=== PATIENT | male | born 1955 | race Caucasian/White ===

== ENCOUNTER 2021-07-25 09:19 | Inpatient (IN) | payer BC, SELFPAY ==
[2021-07-25] VITALS (13 sets, daily range): BP systolic 136; BP diastolic 82–93; PULSE 89–102; RESP 16–24; TEMP 36.4–36.6; O2SAT 64–98
--- NOTE | ~2021-07-25 | CT_ITS ---
EXAMINATION: CT abdomen pelvis wo/w con, CT diagnostic chest w con DATE: 07/25/2021 14:14 INDICATION: Pathologic L1 fracture with abnormal renal masses. TECHNIQUE: 1. Computed tomography (CT) of the chest was performed with 100 mL Omnipaque-350 intravenous contrast . Automated exposure control and iterative reconstruction technique were employed. 2. CT of the abdomen and pelvis was performed without and with 100 mL Omnipaque-350 intravenous contr ast. The same contrast bolus was utilized for the imaging of the chest, abdomen and pelvis. Automated exposure control and iterative reconstruction technique were employed. The dose-length product for t he combined studies was 2788.77 mGy-cm. COMPARISON: Lumbar spine CT dated 07/25/2021 FINDINGS: Chest: Mild elevation of the left hemidiaphragm. 3.8 x 3.3 cm left lower lobe mass with lobular margins conc erning for primary bronchogenic carcinoma. Confluent left hilar and mediastinal lymphadenopathy with mass measuring up to 9.5 x 8.4 x 7.4 cm which encases the left-sided pulmonary arteries with narrowin g of the pulmonary arteries particularly at the left upper lobe. There is also extrinsic compression is severe narrowing of the left upper lobe bronchus. Bandlike atelectasis anterior segment of the lef t upper lobe extends peripherally from the hilar mass. No other suspicious pulmonary nodules or melanie s, pneumonia, pulmonary edema or pleural effusion. Heart size is normal. Atherosclerotic coronary art michael calcification. No pericardial effusion. Thoracic aorta is normal in caliber with no dissection. R ight internal jugular central venous port catheter with distal tip at the superior cavoatrial junctio n. Mild bilateral gynecomastia. Severe bilateral glenohumeral osteoarthritis. Mild thoracic spondylos is. Lucent T9 hemangioma with internal thickened vertical trabecula. No other suspicious lytic or shania stic bone lesions in the chest. Abdomen and pelvis: Hepatic and splenic calcific lesions consistent with old granulomatous disease. Indeterminate a coupl e subtle approximately 1.3 cm relatively hypodense lesions in the left and right hepatic lobes. Pancr eas is normal. The bilateral adrenal glands appear thickened with somewhat nodular contours. Bilatera l nonenhancing renal cysts several which on the left demonstrate slightly greater than simple fluid a ttenuation on precontrast imaging consistent with complex proteinaceous/hemorrhagic cyst. No suspicio us enhancing renal lesions identified. 2.9 cm macroscopic fat attenuation intraluminal lipoma at the ascending colon. Suture line at the tip the cecum consistent with prior appendectomy. No abnormal bow el wall thickening or obstruction. Bladder is normal. Prostatomegaly measuring 4.7 x 3.5 cm. Severe l ower lumbar spondylosis with chronic bilateral L5 pars interarticularis defects and grade 2 anterolis thesis L5 on S1. Again noted is a pathologic compression fracture at L1 with central lytic lesion tonio picious for metastatic disease. Left total hip arthroplasty. IMPRESSION: 1. 3.8 x 3.3 cm left upper lobe mass concerning for primary bronchogenic carcinoma with bulky left hi lar and mediastinal lymphadenopathy concerning for metastatic disease. Consider CT-guided biopsy of t he left upper lobe mass for further evaluation. 2. A couple indeterminate 1.3 cm hypodense hepatic lesions also suspicious for metastatic disease alt bert differential would include benign lesions including hemangioma or focal nodular hyperplasia. 3. Bilateral nonenhancing renal cysts including complex high attenuation proteinaceous/hemorrhagic cy st in the left kidney. 4. Mild nodular thickening of the bilateral adrenal glands which could represent either adrenal hyper plasia, adenomas or metastatic disease. 5. Lytic lesion in the L1 vertebral body with pathologic fracture consistent with metastatic disease. No other suspicious bone lesions identifi
--- NOTE | ~2021-07-25 | CT_ITS ---
EXAMINATION: CT lumbar spine wo con DATE: 07/25/2021 11:50 INDICATION: Midline lumbar pain. TECHNIQUE: Computed tomography (CT) of the lumbar spine was performed without intravenous contrast. A utomated exposure control and iterative reconstruction technique were employed. The dose-length produ ct was 1198.63 mGy-cm. COMPARISON: Lumbar spine CT 10/02/2008 FINDINGS: There is a 2.6 cm mass in left kidney measuring soft tissue attenuation. Partially visualiz ed is a second mass in the left kidney. There are chronic bilateral L5 pars defects. There is 14 mm a nterolisthesis of L5 on S1. There is severely decreased disc height at L5-S1 with degenerative 2/5 he ight loss of L5 vertebral body posteriorly. There is a lytic lesion in L1 vertebral body with patholo gic fracture with 3/5 loss of height centrally. The following disc levels are specifically discussed: L1-L2: The disc is bulging. There is mild bilateral facet joint osteoarthritis. There is mild bilater al neural foraminal stenosis. There is no central canal stenosis. L2-L3: The disc is bulging. There is moderate bilateral facet joint osteoarthritis. There is moderate bilateral neural foraminal stenosis. There is mild central canal stenosis. L3-L4: The disc is bulging. There is mild bilateral facet joint osteoarthritis. There is moderate ray ateral neural foraminal stenosis. There is mild central canal stenosis. L4-L5: The disc is bulging. There is mild bilateral facet joint osteoarthritis. There is moderate ray ateral neural foraminal stenosis. There is mild central canal stenosis. L5-S1: The disc is bulging. There is mild bilateral facet joint osteoarthritis. There is moderate rig ht and severe left neural foraminal stenosis. There is no central canal stenosis. IMPRESSION: 1. Lytic lesion in L1 vertebral body with pathologic fracture, consistent with metastatic disease. 2. Left kidney masses, which may be benign or malignant. Abdomen CT without and with contrast is benson mmended. 3. Chronic bilateral L5 pars defects with grade 2 anterolisthesis of L5 on S1. 4. Severe lower lumbar spondylosis. Reviewed, dictated and finalized at location A. IMPRESSION: 1. Lytic lesion in L1 vertebral body with pathologic fracture, consistent with metastatic disease. 2. Left kidney masses, which may be benign or malignant. Abdomen CT without and with contrast is recommended. 3. Chronic bilateral L5 pars defects with grade 2 anterolisthesis of L5 on S1. 4. Severe lower lumbar spondylosis.
--- NOTE | 2021-07-25 11:38 | ED.BACK ---
HPI - Back Pain/Injury General Chief Complaint: Back Pain/Injury <Kathy Solano PA-C - Last Filed: 07/25/21 18:35> Stated Complaint: back pain <TIO Sandoval Last Filed: 07/25/21 18:35> Time Seen by Provider: 07/25/21 11:14 <TIO Sandoval Last Filed: 07/25/21 18:35> Source: patient <TIO Sandoval Last Filed: 07/25/21 18:35> Mode of arrival: ambulatory <TIO Sandoval Last Filed: 07/25/21 18:35> Limitations: no limitations <TIO Sandoval Last Filed: 07/25/21 18:35> History of Present Illness HPI Narrative: Patient is a 65-year-old male who presents the ED with report of bilateral lower back pain. Patient reports having pain for the past 1 week. He states he has been laying in bed for the most part since the pain began. Pain is worse with any type of movement or walking. Does not radiate down his legs. He has tried taking Tylenol and using a heating pad at home with minimal relief. Denies any bowel or bladder incontinence, weakness in legs, urinary retention, saddle anesthesia. Denies fever, chills, CP, SOB, ABD pain, N/V. No history of trauma, fall, or recent injury. No recent heavy lifting. Patient has a Hx of AFIB and CAD s/p stenting. He is on Xarelto. Patient also mentions a Hx of anal cancer 5 yrs ago. <TIO Sandoval Last Filed: 07/25/21 18:35> Related Data Home Medications: Home Medications Medication Instructions Recorded Confirmed amlodipine 10 mg PO HS 07/25/21 07/25/21 cholestyramine (with sugar) 1 ea PO DAILY PRN 07/25/21 07/25/21 rivaroxaban [Xarelto] 20 mg PO DAILY 07/25/21 07/25/21 rosuvastatin 40 mg PO DAILY 07/25/21 07/25/21 sotalol [Sotalol AF] 80 mg PO BID 07/25/21 07/25/21 testosterone See Rx Instructions .ROUTE .COMPLEX 07/25/21 07/25/21 <Kathy Solano PA-C - Last Filed: 07/25/21 18:35> Allergies/Adverse Reactions: Allergies Allergy/AdvReac Type Severity Reaction Status Date / Time metoprolol AdvReac Cough Verified 07/25/21 18:03 <Kathy Solano PA-C - Last Filed: 07/25/21 18:35> Review of Systems Review of Systems: CONSTITUTIONAL: Denies fever, chills, or sweats. CARDIOVASCULAR: Denies chest pain. RESPIRATORY: Denies dyspnea. GASTROINTESTINAL: Denies abdominal pain, nausea, vomiting, incontinence, or diarrhea. GENITOURINARY: Denies incontinence, frequency, dysuria or hematuria. SKIN: Denies rash or itching. MUSCULOSKELETAL: Reports bilateral lower back pain. Denies joint pain or myalgia. NEUROLOGIC: Denies headache, numbness/tingling, BLE weakness. <Kathy Solano PA-C - Last Filed: 07/25/21 18:35> All systems reviewed & are unremarkable except as noted in HPI and below <Kathy Solano PA-C - Last Filed: 07/25/21 18:35> [facility] Past Medical History Medical History: Medical History Atrial fibrillation CAD in [place] artery Dyslipidemia Essential (primary) hypertension History of anal cancer Hypothyroidism (acquired) JENNIE (obstructive sleep apnea) Osteoarthritis <Kathy Solano PA-C - Last Filed: 07/25/21 18:35> Surgical History Surgical History: Surgical History History of rectal surgery <Kathy Solano PA-C - Last Filed: 07/25/21 18:35> Family History Family History: Family History (Updated 07/25/21 @ 17:51 by Elsa Noble RN) Mother Family history of cardiovascular disease Hypertension Father Family history of lung cancer <Kathy Solano PA-C - Last Filed: 07/25/21 18:35> Social History Social History: Social History Smoking packs per day: 2 Smoking cigarettes per day: 40.0 Years smoked: 20 Smoking pack-years: 40.00 Smoking status: Current every day smoker Tobacco type: cigarettes Second hand tobacco smoke exposure: No Alcohol intake: current Drinks per w
[2021-07-25] MEDS: ONDANSETRON INJ 4 MG/2 ML VIAL IV PUSH (12:15)
[2021-07-25] MEDS: MORPHINE SULFATE (*CRX) 2 MG/ML INJ IV PUSH (12:15)
[2021-07-25 13:00] LABS: Basophils Absolute Auto 0.1 K/mm3 (0.0-0.1); Basophils Percent Auto 0.4 % (0.2-1.2); Eosinophils Absolute Auto 0.1 K/mm3 (0-0.3); Eosinophils Percent Auto 0.4 % (0-4.4); Hematocrit 47.4 % (42.0-52.0); Hemoglobin 15.7 g/dL (14.0-18.0); Immature Granulocyte Absolute 0.11 K/mm3 (0.00-0.031); Immature Granulocyte Percent A 0.8 % (0-0.5); Lymphocytes Absolute Auto 1.63 K/mm3 (0.9-3.2); Lymphocytes Percent Auto 12.1 % (18.3-44.2); Mean Corpuscular HGB Conc 33.1 g/dl (32-36); Mean Corpuscular Hemoglobin 31.9 pg (26-34); Mean Corpuscular Volume 96.3 fl (80-100); Mean Platelet Volume 9.2 fl (7.4-10.4); Monocytes Absolute Auto 1.5 K/mm3 (0.1-0.6); Monocytes Percent Auto 11.1 % (2.6-8.5); Neutrophils Absolute Auto 10.1 K/mm3 (1.3-6.7); Neutrophils Percent Auto 75.2 % (45.5-73.1); Platelet Count Result 364 k/mm3 (150-375); Red Blood Count 4.92 M/mm3 (4.6-6.20); Red Cell Distribution Width 13.5 % (11.5-14.5); White Blood Count 13.4 K/mm3 (4.5-10.0)
[2021-07-25 13:11] LABS: Alanine Aminotransferase 15 U/L (4-50); Albumin Level 3.9 g/dL (3.5-5.1); Alkaline Phosphatase 72 U/L (38-126); Anion Gap 4 mmol/L (8-16); Aspartate Amino Transferase 33 U/L (17-59); Bilirubin,Total 0.6 mg/dL (0.2-1.3); Blood Urea Nitrogen 9 mg/dL (9-20); Calcium 9.6 mg/dL (8.4-10.2); Carbon Dioxide 31 mmol/L (22-30); Chloride 97 mmol/L (98-107); Estimated Glomerular Filt Rate > 60; Glucose 95 mg/dL (65-110); Potassium 3.6 mmol/L (3.4-5.0); Sodium 132 mmol/L (137-145)
[2021-07-25 13:20] LABS: INR 1.2; Prothrombin Time 15.1 Seconds (11.1-14.7)
[2021-07-25 13:21] LABS: Partial Thromboplastin Time 41.5 SECONDS (22.3-36.8)
--- NOTE | 2021-07-25 13:37 | PC.NURSE ---
Spoke with transfer center, all questions answered, pt on wait list, rapid covid test needed.
[2021-07-25 15:24] LABS: SARS-CoV-2 RNA PCR Negative
[2021-07-25] MEDS: MORPHINE SULFATE (*CRX) 4 MG/ML INJ IV PUSH ×3 (17:07→22:43)
--- NOTE | 2021-07-25 17:26 | ADMGEN ---
This patient, Rigo Garcia, was admitted to Medical Room 244-. Patient/family oriented to hospital policies and general routines including ID bracelet, bed and alarms, visiting hours, pain management, procedures, bathroom and other care routines, personal items, smoking policy, room service/diet, and visiting hours. Information on how to activate the Rapid Response Team has been discussed. Patient/Family are encouraged to report perceived risks to care and to ask questions if they do not understand what they are told or what they should do.
--- NOTE | 2021-07-25 23:43 | PM.IMHP ---
H&P: HPI History of Present Illness Date/Time: 07/25/21 22:05 Chief Complaint: Back pain Narrative: 65-year-old male with past medical history of essential hypertension, paroxysmal atrial fibrillation, rectal cancer, hyperlipidemia, coronary artery disease, and continuous tobacco abuse who presented to the ER via private vehicle due to low back pain. Patient reported that he started having subtle low back pain about a month ago but worsened about 1 week ago. The pain feels as if there is a not in his upper lumbar region. He reports that the not so are paraspinal in nature and are relieved with certain position changes. He reports the pain is a 10/10 in intensity his worsen currently is a 6/10 in intensity. The pain is worse when he steps down off of a curb or off of steps anything that causes a directional Force. He denies any loss of bowel or bladder control. He has not had any fevers or chills. He has had mild increased cough with increased phlegm production over the last couple of months. He denies any hemoptysis or hematemesis. He denies any increased shortness of breath from baseline. He reports that he had COVID back in March just before . He received the [employer] COVID vaccine in June of 2019 and did not receive a booster. He reports that since he had COVID he has occasional sour taste in the back of his throat and if he does not get that is our T cleared he will have moment of 15-20 seconds where he cannot breathe. These episodes usually occur after he has had an episode of coughing. He denies having any increased wheezing from baseline. He denies orthopnea or paroxysmal nocturnal dyspnea. His weight has been stable. He does have obstructive sleep apnea but is noncompliant with his CPAP. Patient reports that he has not tried any pain medications 1st pain. He states that he has chronic shoulder pain and Tylenol just does not help him. He states that Vicodin also has never helped with his pain. Cannot have anti-inflammatories due to being on chronic anticoagulation with Xarelto. Review of Systems Review of Systems: 12 systems were reviewed with pertinent positives and negatives per HPI. Except as documented in the HPI, all other systems were reviewed and are negative. [facility] Past Medical History Medical History (Updated 07/26/21 @ 02:07 by Angela Cotton DO) CAD in [place] artery COPD (chronic obstructive pulmonary disease) Dyslipidemia Essential (primary) hypertension History of anal cancer Low testosterone in male JENNIE (obstructive sleep apnea) Noncompliant with CPAP Osteoarthritis Paroxysmal atrial fibrillation Rectal cancer (~2013) Treated with bowel resection, chemotherapy and radiation therapy. Initially treated at [facility] but was following with [facility] still couple of years ago. Surgical History Surgical History (Updated 07/26/21 @ 02:07 by Angela Cotton DO) History of appendectomy History of coronary artery stent placement (~2007) Two stents. Follows with [facility] History of left hip replacement (~2016) History of rectal surgery (~2013) History of tonsillectomy History of total right knee replacement (~2009) Hx of cholecystectomy (~2004) Due to gangrenous gallbladder Family History Family History (Updated 07/26/21 @ 02:08 by Angela Cotton DO) Mother , Age 72 Hypertension Heart failure Father , Age 58 Lung cancer Social History Social History (Updated 07/26/21 @ 02:11 by Angela Cotton DO) Social History: The patient lives in [place] with his of 42 years. His is currently in [place] helping take care of their 13-year-old granddaughter who is being treated for thyroid cancer. He has 2 step children no biologic children. He has smoked 2 packs of cigarettes per day since he was 30 years old. His he drinks 3-4 beers a day. 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
[2021-07-26 02:09] VITALS: BMI 34.5
[2021-07-26] MEDS: MORPHINE SULFATE (*CRX) 4 MG/ML INJ IV PUSH ×7 (02:12→22:37)
[2021-07-26 04:30] VITALS: BP 140/71; PULSE 91; RESP 20; TEMP 36.9; O2SAT 91
[2021-07-26 07:54] VITALS: PULSE 80
[2021-07-26] MEDS: SOTALOL HCL 80 MG TABLET PO ×2 (07:54→20:46)
[2021-07-26] MEDS: ROSUVASTATIN 10 MG TABLET 40 MG PO (07:54)
--- NOTE | 2021-07-26 09:49 | PM.IMPN ---
Progress Note: A&P Assessment and Plan (1) Mass of upper lobe of left lung: Code(s): R91.8 - Other nonspecific abnormal finding of lung field Status: Acute Assessment and Plan: - Concern for probable bronchogenic carcinoma with potential of a metastasis to the liver and also irregularities noted in the adrenal glands kidneys. - History of anal cancer that is followed by oncologist at [facility]. Has not been evaluated There for a few years - awaiting transfer to [place]. - treat pain as needed. - Xarelto currently substituted with SCDs for DVT prophylaxis as patient will be likely having biopsy soon. (2) Pathologic lumbar vertebral fracture: Qualifiers: Encounter type: initial encounter Qualified Code(s): M84.48XA - Pathological fracture, other site, initial encounter for fracture Code(s): M84.48XA - Pathological fracture, other site, initial encounter for fracture Status: Acute Assessment and Plan: - Continue [place] and morphine for pain. - As treating with narcotic pain medication, will order MiraLax daily. - Awaiting transfer to [facility] (3) Chronic anticoagulation: Code(s): Z79.01 - [facility] (current) use of anticoagulants Status: Acute Assessment and Plan: - on Xarelto for atrial fibrillation. - Currently holding Xarelto due to the likelihood the patient will need and upcoming biopsy. (4) Constipation: Qualifiers: Constipation type: unspecified constipation type Qualified Code(s): K59.00 - Constipation, unspecified Code(s): K59.00 - Constipation, unspecified Status: Acute Assessment and Plan: - patient endorses no bowel movement for the past 5-6 days in addition we are treating patient with narcotic pain medications, so he will be started on MiraLax p.o. daily. (5) Tobacco abuse: Code(s): Z72.0 - Tobacco use Status: Chronic Assessment and Plan: - Patient endorses smoking 2 packs of cigarettes daily since he was 30 years old. He is currently 65 years old Making him a 70 year pack smoker. - he was educated on the importance of smoking cessation. - Nicotine patch is ordered. Additional Plan Time Spent With Patient Time with patient: 15 - 25 minutes Subjective Date/time seen: 07/26/21 0850 65-year-old male patient is examined at the bedside and intervals assessment this morning after being admitted to the hospital for complaints of having severe, intractable back pain that has been present for approximately 1 month it has worsened over the past week without any acute injury. He endorses that any jarring motion stepping down or any gravity directed force applied to his legs or on his back makes the pain worse. This patient is a chronic 2 pack-a-day cigarette smoker and has been for many years. He a total 70 pack-year smoker. patient has a history of having rectal cancer that he followed with a physician at [facility] and was considered cured. He has not followed up with his physician or any oncological services in several years. Patient also has a history of chronic atrial fibrillation which he is on Xarelto for anticoagulation. In the emergency room and was found by x-ray of the lumbar spine that he is a lytic lesion The L1 that has caused pathologic fracture and is consistent with metastasis to the bone. In addition CT of the abdomen, chest and pelvis show that he has left renal masses as well as concern for a bronchogenic carcinoma with bulky hilar and mediastinal lymphadenopathy concerning for metastasis in the lung. Hepatic lesions are also present and he has nodular thickening of the adrenal glands. he was admitted to the hospital for pain control overnight and we have requested transfer to [facility] for further oncological evaluation, workup and definitive care. Xarelto is currently being held for potential biopsy within the next couple of days. This
[2021-07-26] MEDS: polyethylene glycoL 3350 17 GM POWD.PACK PO (12:56)
--- NOTE | 2021-07-26 13:22 | PC.NURSE ---
On 07/26/21 UE student Russ Crawley provided care and performed an assessment in [facility]. I agree with the assessment and documentation.
[2021-07-26 17:00] VITALS: BP 157/80; PULSE 87; RESP 18; TEMP 36.1; O2SAT 94
[2021-07-26 20:42] VITALS: BP 149/79; PULSE 93; RESP 20; TEMP 37.1; O2SAT 90
[2021-07-26 20:46] VITALS: PULSE 94
[2021-07-26] MEDS: amLODIPine BESYLATE 5 MG TABLET 10 MG PO (20:47)
[2021-07-26] MEDS: HYDROcodone/acetaminophen (*CRX) 10-325 MG TABLET 1 TAB PO (20:49)
[2021-07-27] MEDS: MORPHINE SULFATE (*CRX) 4 MG/ML INJ IV PUSH ×6 (04:01→22:24)
[2021-07-27 04:17] VITALS: BP 123/63; PULSE 79; RESP 20; TEMP 36.8; O2SAT 94
[2021-07-27 05:45] LABS: Basophils Absolute Auto 0.1 K/mm3 (0.0-0.1); Basophils Percent Auto 0.5 % (0.2-1.2); Eosinophils Absolute Auto 0.1 K/mm3 (0-0.3); Eosinophils Percent Auto 0.8 % (0-4.4); Hematocrit 44.6 % (42.0-52.0); Hemoglobin 14.8 g/dL (14.0-18.0); Immature Granulocyte Percent A 0.8 % (0-0.5); Lymphocytes Absolute Auto 1.46 K/mm3 (0.9-3.2); Lymphocytes Percent Auto 11.2 % (18.3-44.2); Mean Corpuscular HGB Conc 33.2 g/dl (32-36); Mean Corpuscular Hemoglobin 31.4 pg (26-34); Mean Corpuscular Volume 94.5 fl (80-100); Mean Platelet Volume 9.7 fl (7.4-10.4); Monocytes Absolute Auto 1.5 K/mm3 (0.1-0.6); Monocytes Percent Auto 11.1 % (2.6-8.5); Neutrophils Absolute Auto 9.9 K/mm3 (1.3-6.7); Neutrophils Percent Auto 75.6 % (45.5-73.1); Platelet Count Result 387 k/mm3 (150-375); Red Blood Count 4.72 M/mm3 (4.6-6.20); Red Cell Distribution Width 13.2 % (11.5-14.5)
[2021-07-27 06:00] LABS: Alanine Aminotransferase 14 U/L (4-50); Albumin Level 3.6 g/dL (3.5-5.1); Alkaline Phosphatase 62 U/L (38-126); Anion Gap 8 mmol/L (8-16); Aspartate Amino Transferase 21 U/L (17-59); Bilirubin,Total 0.6 mg/dL (0.2-1.3); Blood Urea Nitrogen 7 mg/dL (9-20); Calcium 9.5 mg/dL (8.4-10.2); Carbon Dioxide 28 mmol/L (22-30); Chloride 95 mmol/L (98-107); Estimated CRCL calculation 129 ml/min; Estimated Glomerular Filt Rate > 60; Glucose 119 mg/dL (65-110); Magnesium 1.8 mg/dL (1.6-2.3); Potassium 3.3 mmol/L (3.4-5.0); Sodium 131 mmol/L (137-145)
[2021-07-27] MEDS: POTASSIUM CHLORIDE 20 MEQ TABLET 40 MEQ PO (08:10)
[2021-07-27] MEDS: POTASSIUM CHLORIDE 20 MEQ TABLET PO (08:11)
[2021-07-27] MEDS: polyethylene glycoL 3350 17 GM POWD.PACK PO (08:11)
[2021-07-27 08:12] VITALS: PULSE 70
[2021-07-27] MEDS: SOTALOL HCL 80 MG TABLET PO ×2 (08:12→20:08)
[2021-07-27] MEDS: ROSUVASTATIN 10 MG TABLET 40 MG PO (08:12)
[2021-07-27] MEDS: HYDROcodone/acetaminophen (*CRX) 10-325 MG TABLET 1 TAB PO ×2 (10:22→18:17)
[2021-07-27 11:00] VITALS: BP 118/63; PULSE 84; RESP 20; TEMP 36.2; O2SAT 93
--- NOTE | 2021-07-27 11:03 | PCCCNOTE ---
On 07/27/21, the student, [Bita aCrd], provided care and completed [facility] documentation on this patient. I have reviewed the student's documentation and agree with the findings.
--- NOTE | 2021-07-27 11:07 | PM.IMPN ---
Progress Note: A&P Assessment and Plan (1) Mass of upper lobe of left lung: Code(s): R91.8 - Other nonspecific abnormal finding of lung field Status: Acute Assessment and Plan: - Concern for probable bronchogenic carcinoma with potential of a metastasis to the liver and also irregularities noted in the adrenal glands kidneys. - History of anal cancer that is followed by oncologist at [facility]. Has not been evaluated there for a few years - awaiting transfer to [place]. - treat pain as needed. - Xarelto currently substituted with SCDs for DVT prophylaxis as patient will be likely having biopsy soon. (2) Pathologic lumbar vertebral fracture: Qualifiers: Encounter type: initial encounter Qualified Code(s): M84.48XA - Pathological fracture, other site, initial encounter for fracture Code(s): M84.48XA - Pathological fracture, other site, initial encounter for fracture Status: Acute Assessment and Plan: - Continue [place] and morphine for pain. - As treating with narcotic pain medication, will order MiraLax daily. - Awaiting transfer to [facility] (3) Chronic anticoagulation: Code(s): Z79.01 - half-way (current) use of anticoagulants Status: Acute Assessment and Plan: - on Xarelto for atrial fibrillation. - Currently holding Xarelto due to the likelihood the patient will need and upcoming biopsy. (4) Constipation: Qualifiers: Constipation type: unspecified constipation type Qualified Code(s): K59.00 - Constipation, unspecified Code(s): K59.00 - Constipation, unspecified Status: Acute Assessment and Plan: - patient endorses no bowel movement for the past 5-6 days in addition we are treating patient with narcotic pain medications, so he will be started on MiraLax p.o. daily. (5) Tobacco abuse: Code(s): Z72.0 - Tobacco use Status: Chronic Assessment and Plan: - Patient endorses smoking 2 packs of cigarettes daily since he was 30 years old. He is currently 65 years old Making him a 70 year pack smoker. - he was educated on the importance of smoking cessation. - Nicotine patch is ordered. Additional Plan Time Spent With Patient Time with patient: 15 - 25 minutes Subjective Date/time seen: 07/27/21 1000 This pleasant 65 year old male patient is examined at the bedside at this time as he is admitted to observation here for pain control while he is pending transfer to [facility] for workup of his apparent metastasis. He has pathologic fracture of L1 as well as Left upper lung mass, and potential associated spots on his liver and adrenal glands. His pain has been severe in his back. Today he reports that his pain is better improved and that he has no new complaints or symptoms to report. He reports that his pain is better managed today. He asked me to call his sister, Lizette Kerr at [phone], and he gives permission for us to speak with her regarding his current status. She was updated. We are still awaiting a bed at [facility] and will transfer as soon as one is available. Review of Systems Review of Systems: All systems reviewed & are unremarkable except as noted in HPI and below Exam Narrative: PHYSICAL EXAM: General: Obese, elderly appearing male lying supine in bed at this time in no acute distress. He appears to be comfortable. HEENT: MMM, PERRLA Respiratory: Decreased breath sounds present in all lobes. There is a prolonged expiratory phase. Cardiovascular: Regular rate, regular rhythm, 2+ bilateral radial pedal pulses Gastrointestinal: Distended, nontender, positive bowel sounds Skin: No jaundice, no pallor Musculoskeletal: Back is tender to palpation. Neurological: A&Ox3, non-focal, no saddle anesthesia Psychiatric: Appropriate mood and affect, judgment insight intact : Continent of bowel and bladder Objective Data Vital Signs Vital Signs:
[2021-07-27 20:08] VITALS: PULSE 78
[2021-07-27] MEDS: amLODIPine BESYLATE 5 MG TABLET 10 MG PO (20:09)
[2021-07-27 20:13] VITALS: BP 125/72; PULSE 78; RESP 18; TEMP 36.8; O2SAT 93
[2021-07-28] MEDS: HYDROcodone/acetaminophen (*CRX) 10-325 MG TABLET 1 TAB PO ×3 (02:20→17:56)
[2021-07-28] MEDS: MORPHINE SULFATE (*CRX) 4 MG/ML INJ IV PUSH ×6 (04:23→23:51)
[2021-07-28 04:31] VITALS: BP 115/69; PULSE 77; RESP 16; TEMP 36.4; O2SAT 91
[2021-07-28 05:59] LABS: Basophils Absolute Auto 0.1 K/mm3 (0.0-0.1); Basophils Percent Auto 0.5 % (0.2-1.2); Eosinophils Absolute Auto 0.2 K/mm3 (0-0.3); Eosinophils Percent Auto 1.3 % (0-4.4); Hematocrit 47.3 % (42.0-52.0); Hemoglobin 15.3 g/dL (14.0-18.0); Immature Granulocyte Percent A 0.8 % (0-0.5); Lymphocytes Absolute Auto 1.65 K/mm3 (0.9-3.2); Lymphocytes Percent Auto 13.8 % (18.3-44.2); Mean Corpuscular HGB Conc 32.3 g/dl (32-36); Mean Corpuscular Hemoglobin 31.4 pg (26-34); Mean Corpuscular Volume 97.1 fl (80-100); Mean Platelet Volume 9.4 fl (7.4-10.4); Monocytes Absolute Auto 1.3 K/mm3 (0.1-0.6); Monocytes Percent Auto 10.6 % (2.6-8.5); Neutrophils Absolute Auto 8.7 K/mm3 (1.3-6.7); Platelet Count Result 406 k/mm3 (150-375); Red Blood Count 4.87 M/mm3 (4.6-6.20); Red Cell Distribution Width 13.3 % (11.5-14.5); White Blood Count 11.9 K/mm3 (4.5-10.0)
[2021-07-28 06:19] LABS: Alanine Aminotransferase 15 U/L (4-50); Albumin Level 3.9 g/dL (3.5-5.1); Alkaline Phosphatase 66 U/L (38-126); Anion Gap 6 mmol/L (8-16); Aspartate Amino Transferase 23 U/L (17-59); Bilirubin,Total 0.7 mg/dL (0.2-1.3); Blood Urea Nitrogen 8 mg/dL (9-20); Calcium 9.6 mg/dL (8.4-10.2); Carbon Dioxide 30 mmol/L (22-30); Chloride 96 mmol/L (98-107); Estimated CRCL calculation 129 ml/min; Estimated Glomerular Filt Rate > 60; Glucose 101 mg/dL (65-110); Magnesium 1.9 mg/dL (1.6-2.3); Potassium 3.6 mmol/L (3.4-5.0); Sodium 132 mmol/L (137-145)
[2021-07-28] MEDS: polyethylene glycoL 3350 17 GM POWD.PACK PO (07:56)
[2021-07-28] MEDS: ROSUVASTATIN 10 MG TABLET 40 MG PO (07:56)
[2021-07-28] MEDS: SOTALOL HCL 80 MG TABLET PO ×2 (07:56→21:04)
--- NOTE | 2021-07-28 10:28 | PM.IMPN ---
Progress Note: A&P Assessment and Plan (1) Mass of upper lobe of left lung: Code(s): R91.8 - Other nonspecific abnormal finding of lung field Status: Acute Assessment and Plan: - Concern for probable bronchogenic carcinoma with potential of a metastasis to the liver and also irregularities noted in the adrenal glands kidneys. - History of anal cancer that is followed by oncologist at [facility]. Has not been evaluated there for a few years - awaiting transfer to [place]. - treat pain as needed. - Xarelto being held as the pt. will likely be having a biopsy soon. SCD's are being used for Prophylaxis currently. (2) Pathologic lumbar vertebral fracture: Qualifiers: Encounter type: initial encounter Qualified Code(s): M84.48XA - Pathological fracture, other site, initial encounter for fracture Code(s): M84.48XA - Pathological fracture, other site, initial encounter for fracture Status: Acute Assessment and Plan: - Continue [place] and morphine for pain. - As treating with narcotic pain medication, will order MiraLax daily. 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 - Currently holding Xarelto due to the likelihood the patient will need and upcoming biopsy. (4) Constipation: Qualifiers: Constipation type: unspecified constipation type Qualified Code(s): K59.00 - Constipation, unspecified Code(s): K59.00 - Constipation, unspecified Status: Acute Assessment and Plan: - patient endorses no bowel movement for the past 5-6 days in addition we are treating patient with narcotic pain medications, so he will be started on MiraLax p.o. daily. - 07/28/2021: Now 7-8 days without BM despite using MiraLax. One time Lactulose po and Dulcolax suppository is ordered at this time. (5) Tobacco abuse: Code(s): Z72.0 - Tobacco use Status: Chronic Assessment and Plan: - Patient endorses smoking 2 packs of cigarettes daily since he was 30 years old. He is currently 65 years old Making him a 70 year pack smoker. - he was educated on the importance of smoking cessation. - Nicotine patch is ordered. Additional Plan Time Spent With Patient Time with patient: 15 - 25 minutes Subjective Date/time seen: 07/28/21 6427 This pt. was examined at the bedside today in interval exam after being admitted for his intractable back pain and newly found metastasis. He is still awaiting a bed at [facility] today. Pt denies any acute pain, dyspnea or any other complaints today. He has no CP, Dyspnea, or any N/V. He does still continue to have back pain, but it is currently controlled with pain medications. He was able to be up last evening into the shower, but cannot stand. He had to be transferred into a wheel chair and rolled into the shower for bathing. The pt. states the pain is too unbearable when he stands. At rest the pt. states his pain is well controlled today. He denies any saddle anesthesia and he has no distal numbness, tingling and no shooting pains. No loss of bowel or bladder control either. 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 He was reassured that more testing needs to be done to make a confirmation and to try not to worry as much as possible as it won't change anything. He was reassured that we are working as fast as possible to get him transferred to [place]. He understands this and is thankful for our care. If pt. continues to appear distraught, will consider starting him on SSRI and prn anxiety meds as needed. Check in with [place] access says they are still waiting on an Oncology bed to open up. Review of Systems Review of Systems: Bernardo morocho
[2021-07-28] MEDS: LACTULOSE 20 GM/30 ML UDC PO (11:08)
[2021-07-28 14:00] VITALS: BP 149/79; PULSE 84; RESP 16; TEMP 36.7; O2SAT 95
--- NOTE | 2021-07-28 14:08 | PC.NURSE ---
On 07/28/21, the student, [ Edin Munguia], provided care and completed [facility] documentation on this patient. I have reviewed the student's documentation and agree with the findings.
[2021-07-28] MEDS: BISACODYL 10 MG SUPPOSITORY RECTAL (17:10)
[2021-07-28 21:04] VITALS: BP 125/66; PULSE 72; PULSE 98; RESP 20; TEMP 36.7; O2SAT 95
[2021-07-28] MEDS: amLODIPine BESYLATE 5 MG TABLET 10 MG PO (21:04)
[2021-07-29] MEDS: MORPHINE SULFATE (*CRX) 4 MG/ML INJ IV PUSH ×7 (02:23→20:43)
[2021-07-29 05:00] VITALS: BP 110/56; PULSE 78; RESP 20; TEMP 36.8; O2SAT 92
[2021-07-29 05:22] LABS: Basophils Absolute Auto 0.1 K/mm3 (0.0-0.1); Basophils Percent Auto 0.6 % (0.2-1.2); Eosinophils Absolute Auto 0.2 K/mm3 (0-0.3); Eosinophils Percent Auto 1.9 % (0-4.4); Hematocrit 48.2 % (42.0-52.0); Hemoglobin 15.4 g/dL (14.0-18.0); Immature Granulocyte Absolute 0.11 K/mm3 (0.00-0.031); Lymphocytes Absolute Auto 1.34 K/mm3 (0.9-3.2); Mean Corpuscular Hemoglobin 31.2 pg (26-34); Mean Corpuscular Volume 97.6 fl (80-100); Mean Platelet Volume 9.4 fl (7.4-10.4); Monocytes Absolute Auto 1.1 K/mm3 (0.1-0.6); Monocytes Percent Auto 9.9 % (2.6-8.5); Neutrophils Absolute Auto 8.4 K/mm3 (1.3-6.7); Neutrophils Percent Auto 74.6 % (45.5-73.1); Platelet Count Result 408 k/mm3 (150-375); Red Blood Count 4.94 M/mm3 (4.6-6.20); Red Cell Distribution Width 13.2 % (11.5-14.5); White Blood Count 11.2 K/mm3 (4.5-10.0)
[2021-07-29 05:42] LABS: Potassium 3.9 mmol/L (3.4-5.0)
[2021-07-29 05:47] LABS: Alanine Aminotransferase 26 U/L (4-50); Albumin Level 3.9 g/dL (3.5-5.1); Alkaline Phosphatase 70 U/L (38-126); Anion Gap 5 mmol/L (8-16); Aspartate Amino Transferase 30 U/L (17-59); Bilirubin,Total 0.6 mg/dL (0.2-1.3); Blood Urea Nitrogen 9 mg/dL (9-20); Calcium 9.6 mg/dL (8.4-10.2); Carbon Dioxide 34 mmol/L (22-30); Chloride 94 mmol/L (98-107); Estimated CRCL calculation 129 ml/min; Estimated Glomerular Filt Rate > 60; Glucose 106 mg/dL (65-110); Magnesium 1.9 mg/dL (1.6-2.3); Sodium 133 mmol/L (137-145)
[2021-07-29] MEDS: LACTULOSE 20 GM/30 ML UDC PO (08:15)
[2021-07-29] MEDS: polyethylene glycoL 3350 17 GM POWD.PACK PO (08:15)
[2021-07-29] MEDS: ROSUVASTATIN 10 MG TABLET 40 MG PO (08:15)
[2021-07-29] MEDS: SOTALOL HCL 80 MG TABLET PO ×2 (08:16→20:43)
--- NOTE | 2021-07-29 08:30 | PM.IMPN ---
Progress Note: A&P Assessment and Plan (1) Mass of upper lobe of left lung: Code(s): R91.8 - Other nonspecific abnormal finding of lung field Status: Acute Assessment and Plan: - Concern for probable bronchogenic carcinoma with potential of a metastasis to the liver and also irregularities noted in the adrenal glands kidneys. - History of anal cancer that is followed by oncologist at [facility]. Has not been evaluated there for a few years - awaiting transfer to [place]. - treat pain as needed. - Xarelto being held as the pt. will likely be having a biopsy soon. SCD's are being used for Prophylaxis currently. (2) Pathologic lumbar vertebral fracture: Qualifiers: Encounter type: initial encounter Qualified Code(s): M84.48XA - Pathological fracture, other site, initial encounter for fracture Code(s): M84.48XA - Pathological fracture, other site, initial encounter for fracture Status: Acute Assessment and Plan: - Continue [place] and morphine for pain. - As treating with narcotic pain medication, will order MiraLax daily. 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 - Currently holding Xarelto due to the likelihood the patient will need and upcoming biopsy. (4) Constipation: Qualifiers: Constipation type: unspecified constipation type Qualified Code(s): K59.00 - Constipation, unspecified Code(s): K59.00 - Constipation, unspecified Status: Acute Assessment and Plan: - patient endorses no bowel movement for the past 5-6 days in addition we are treating patient with narcotic pain medications, so he will be started on MiraLax p.o. daily. - 07/28/2021: Now 7-8 days without BM despite using MiraLax. Continue Lactulose po and Dulcolax suppository is ordered at this time. Order a mineral oil enema (5) Tobacco abuse: Code(s): Z72.0 - Tobacco use Status: Chronic Assessment and Plan: - Patient endorses smoking 2 packs of cigarettes daily since he was 30 years old. He is currently 65 years old Making him a 70 year pack smoker. - he was educated on the importance of smoking cessation. - Nicotine patch is ordered. Additional Plan Time Spent With Patient Time with patient: 25 - 35 minutes Subjective Date/time seen: 07/29/21 12:07 Interval history: Date/Time: 07/25/21 22:05 Narrative: 65-year-old male with past medical history of essential hypertension, paroxysmal atrial fibrillation, rectal cancer, hyperlipidemia, coronary artery disease, and continuous tobacco abuse who presented to the ER via private vehicle due to low back pain. Patient reported that he started having subtle low back pain about a month ago but worsened about 1 week ago. The pain feels as if there is a not in his upper lumbar region. He reports that the not so are paraspinal in nature and are relieved with certain position changes. He reports the pain is a 10/10 in intensity his worsen currently is a 6/10 in intensity. The pain is worse when he steps down off of a curb or off of steps anything that causes a directional Force. He denies any loss of bowel or bladder control. He has not had any fevers or chills. He has had mild increased cough with increased phlegm production over the last couple of months. He denies any hemoptysis or hematemesis. He denies any increased shortness of breath from baseline. He reports that he had COVID back in March just before . He received the [employer] COVID vaccine in June of 2019 and did not receive a booster. He reports that since he had COVID he has occasional sour taste in the back of his throat and if he does not get that is our T cleared he will have moment of 15-20 seconds where he cannot breathe. These episodes usua
--- NOTE | 2021-07-29 13:44 | PC.NURSE ---
On 07/29/21, the student, [Zak Sommers], provided care and completed [facility] documentation on this patient. I have reviewed the student's documentation and agree with the findings.
[2021-07-29 13:55] VITALS: BP 126/72; PULSE 88; RESP 18; TEMP 36.6; O2SAT 96
[2021-07-29 20:05] VITALS: BP 130/63; PULSE 87; RESP 18; TEMP 37.2; O2SAT 93
[2021-07-29 20:43] VITALS: PULSE 86
[2021-07-29] MEDS: amLODIPine BESYLATE 5 MG TABLET 10 MG PO (20:43)
--- NOTE | 2021-07-29 21:23 | PC.NURSE ---
Called report to Eryn at [facility] pt is going to room [address]34 accepting md [place]. Ambulance was called pt to be picked up in 25 minutes. Called back to Eryn to alert her of approximated arrival time
[2021-07-29] MEDS: HYDROcodone/acetaminophen (*CRX) 10-325 MG TABLET 1 TAB PO (22:09)
--- NOTE | 2021-07-30 06:45 | PM.TDS ---
Transfer Discharge Sum: Prov Provider Date of admission: 07/27/21 15:42 Primary care physician: Francisco Carroll, Admitting clinician: Sergio Palacio MD Attending physician on admission: Angela Cotton Attending physician on discharge: Leonel Bello Discharging clinician: Jaden Fortune Anticipated date of transfer: 07/29/21 Receiving physician/facility: [facility] DS: Admitting Diagnosis Discharge Date 07/29/21 2200 Admitting Diagnosis Pathological lumbar fracture, mass of the upper lobe of the left lung DS: Discharge Diagnosis Discharge Diagnosis (1) Mass of upper lobe of left lung: Code(s): R91.8 - Other nonspecific abnormal finding of lung field Status: Acute Assessment and Plan: - Concern for probable bronchogenic carcinoma with potential of a metastasis to the liver and also irregularities noted in the adrenal glands kidneys. - History of anal cancer that is followed by oncologist at [facility]. Has not been evaluated there for a few years - awaiting transfer to [facility]. - treat pain as needed. - Xarelto being held as the pt. will likely be having a biopsy soon. SCD's are being used for Prophylaxis currently. (2) Pathologic lumbar vertebral fracture: Qualifiers: Encounter type: initial encounter Qualified Code(s): M84.48XA - Pathological fracture, other site, initial encounter for fracture Code(s): M84.48XA - Pathological fracture, other site, initial encounter for fracture Status: Acute Assessment and Plan: - Continue [place] and morphine for pain. - As treating with narcotic pain medication, will order MiraLax daily. 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 - Currently holding Xarelto due to the likelihood the patient will need and upcoming biopsy. (4) Constipation: Qualifiers: Constipation type: unspecified constipation type Qualified Code(s): K59.00 - Constipation, unspecified Code(s): K59.00 - Constipation, unspecified Status: Acute Assessment and Plan: - patient endorses no bowel movement for the past 5-6 days in addition we are treating patient with narcotic pain medications, so he will be started on MiraLax p.o. daily. - 07/28/2021: Now 7-8 days without BM despite using MiraLax. Continue Lactulose po and Dulcolax suppository is ordered at this time. Order a mineral oil enema (5) Tobacco abuse: Code(s): Z72.0 - Tobacco use Status: Chronic Assessment and Plan: - Patient endorses smoking 2 packs of cigarettes daily since he was 30 years old. He is currently 65 years old Making him a 70 year pack smoker. - he was educated on the importance of smoking cessation. - Nicotine patch is ordered. Transfer Discharge Sum: Med Medications Active and Home Medications: Home Medications amlodipine 10 mg PO HS 07/25/21 [History Confirmed 07/25/21] cholestyramine (with sugar) 1 ea PO DAILY PRN 07/25/21 [History Confirmed 07/25/21] rivaroxaban [Xarelto] 20 mg PO DAILY 07/25/21 [History Confirmed 07/25/21] rosuvastatin 40 mg PO DAILY 07/25/21 [History Confirmed 07/25/21] sotalol [Sotalol AF] 80 mg PO BID 07/25/21 [History Confirmed 07/25/21] testosterone See Rx Instructions .ROUTE .COMPLEX 07/25/21 [History Confirmed 07/25/21] Transfer Discharge Sum: Hosp Hospital Course Hospital course: Rigo Garcia is a 65 year old male with past medical history of CAD, COPD, dyslipidemia, hypertension, JENNIE who presented to the ED due to low back pain. It was noted that the patient does have a new acute fracture of L1. It looks as if the carcinoma that was in his lung has mass asked to size to the bone. Patient was having severe pain and was treated with pain medications. Transfer was initiated to [facility] for full onc
== END 2021-07-29 22:15 | disposition short-term general hospital (02) | DRG 181 ==
LOC: ANHED 16:03 → ANH2MED 16:36
PROVIDERS: Nurse Practitioner Adult Health; Physician Assistant; Admitting Provider Family Medicine; Emergency Provider Emergency Medicine; PCP Internal Medicine; Visit Provider Nurse Practitioner
DX: C34.12 Malignant neoplasm of upper lobe, left bronchus or lung (principal); C79.51 Secondary malignant neoplasm of bone; M84.58XA Pathological fracture in neoplastic disease, other specified site, initial encounter for fracture; C78.7 Secondary malignant neoplasm of liver and intrahepatic bile duct; C79.72 Secondary malignant neoplasm of left adrenal gland; Z20.822 Contact with and (suspected) exposure to COVID-19; K59.00 Constipation, unspecified; F17.210 Nicotine dependence, cigarettes, uncomplicated; I25.10 Atherosclerotic heart disease of native coronary artery without angina pectoris; I48.0 Paroxysmal atrial fibrillation; J44.9 Chronic obstructive pulmonary disease, unspecified; E78.5 Hyperlipidemia, unspecified; G47.33 Obstructive sleep apnea (adult) (pediatric); E03.9 Hypothyroidism, unspecified; E66.9 Obesity, unspecified; Z68.34 Body mass index [BMI] 34.0-34.9, adult; M19.90 Unspecified osteoarthritis, unspecified site; I10 Essential (primary) hypertension; Z95.5 Presence of coronary angioplasty implant and graft; Z85.048 Personal history of other malignant neoplasm of rectum, rectosigmoid junction, and anus; Z79.01 Long term (current) use of anticoagulants; Z86.16 Personal history of COVID-19
CPT/HCPCS: 36415; 71260; 72131; 74178; 80053; 83735; 85025; 85610; 85730; 96365; 96366; 96375; 96376; 99285; A9270; C9803; G0378; J0131; J2270; J2405; Q9967; U0003; U0005